=== PATIENT | male | born 1970 | race African-American/Black ===

== ENCOUNTER 2016-10-06 11:37 | Outpatient (CLI) | payer OTHER ==
--- NOTE | 2016-10-06 12:39 | XRay Report ---
CHEST 2 VIEWS INDICATION: Positive PPD. COMPARISON: None similar at this institution. FINDINGS: PA and lateral chest radiographs demonstrate normal cardiomediastinal silhouette. Clear lungs. Intact bones. CONCLUSION: No acute disease in the chest. Thank you for the opportunity to participate in this patient's care.
== END 2016-10-06 11:38 | disposition home or self-care (01) ==
LOC: XRAY 11:37
PROVIDERS: ATTEND Internal Medicine
DX: Z11.1 Encounter for screening for respiratory tuberculosis (principal); R76.11 Nonspecific reaction to tuberculin skin test without active tuberculosis; B19.9 Unspecified viral hepatitis without hepatic coma
CPT/HCPCS: 36415; 71020; 86706; 86735; 86762; 86765; 86787